=== PATIENT | male | born 1935 | race Caucasian/White ===

== ENCOUNTER 2016-09-03 11:02 | Inpatient (IN) | payer MEDICARE, BC ==
[2016-09-03] MEDS: Acetaminophen/HYDROcodone 325-5 MG Tab PO PRN ×3 (12:15→21:46)
--- NOTE | 2016-09-03 13:32 | PCM.HP ---
H&P History of Present Illness - General Date of Service: 09/03/16 Admit Problem/Dx: Admission Diagnosis/Problem Admission Diagnosis/Problem Arthroplasty of knee Severe Osteoarthritis of Left Knee Essential Hypertension Diabetes Mellitus, Type II Adenocarcinoma, Colon, Sigmoid, Hx of Source of Information: Patient, Old records, RN, RN notes reviewed History Limitations: Reports: No limitations - History of Present Illness Initial Comments - Free Text/Narative: Patient underwent a elective Total Left Knee Arthroplasty on 08/31/[address] Jj Zamora at [facility]. Patient has a long-standing history of severe left knee osteoarthritis which failed conservative treatment. Patient states his mobility was severely intolerable and had much trouble with ambulation. Patient had spinal anesthesia and EBL was 40mL. Surgery was uneventful and patient did well post-operatively. He remained hemodynamically stable and was able to be discharged to Swing Bed today. He does have a history of DM. His blood sugars have been running high in the 200's. Blood pressure has remained under decent control. Patient does not have a history of any blood clotting or bleeding disorders. Patient participated well with physical therapy and met goals for discharge. Symptom Onset Date: 08/31/16 left knee Pain Score (Numeric/FACES): 4 - Related Data Allergies/Adverse Reactions: Allergies Allergy/AdvReac Type Severity Reaction Status Date / Time No Known Drug Allergies Allergy Other Verified 09/03/16 07:32 Home Medications: Home Meds Aspirin/Calcium Carbonate/Mag [Aspirin Buffered 325 mg Tab] 325 mg PO BID [History] Folic Acid 1 mg PO DAILY 09/03/16 [History] Hydrochlorothiazide 12.5 mg PO DAILY 09/03/16 [History] Hydrocodone/Acetaminophen [Lowgap 5-325] 1 - 2 tab PO Q4H PRN 09/03/16 [History] Lisinopril 10 mg PO DAILY 09/03/16 [History] Methotrexate Sodium [Methotrexate] 15 mg PO Q7D 09/03/16 [History] Multivitamin [Daily Multiple Vitamin] 1 tab PO DAILY 09/03/16 [History] Omeprazole 40 mg PO DAILY 09/03/16 [History] Sennosides/Docusate Sodium [Senna-Docusate Sodium] 1 each PO DAILY 09/03/16 [ History] metFORMIN HCl [Metformin HCl] 1,000 mg PO BIDMEALS 09/03/16 [History] Past Medical History Cardiovascular History: Reports: Hypertension Respiratory History: Reports: None Gastrointestinal History: Reports: Colon polyp, Other (see below) ( Adenocarcinoma of Sigmoid Colon) Musculoskeletal History: Reports: Arthritis, Osteoarthritis, RA Endocrine/Metabolic History: Reports: Diabetes, type II Hematologic History: Reports: None Oncologic (Cancer) History: Reports: Colon - Infectious Disease History Infectious Disease History: Reports: None - Past Surgical History GI Surgical History: Reports: Colon Musculoskeletal Surgical History: Reports: Knee replacement Social & Family History - Family History Family Medical History: Noncontributory - Tobacco Use Smoking Status *Q: Former Smoker Tobacco Use Within Last Twelve Months: No Tobacco Use Comment: quit smoking 50 years ago Second Hand Smoke Exposure: No - Caffeine Use Caffeine Use: Reports: None - Alcohol Use Days Per Week of Alcohol Use: 1 Number of Drinks Per Day: 1 Total Drinks Per Week: 1 - Recreational Drug Use Recreational Drug Use: No - Living Situation & Occupation Occupation: retired H&P Review of Systems - Review of Systems: Review Of Systems: See Below General: Denies: fever, chills, weakness Pulmonary: Denies: Shortness of Breath, Cough Cardiovascular: Denies: chest pain, palpitations, lightheadedness Gastrointestinal: Reports: Constipation. Denies: Abdominal pain, Diarrhea, Nausea, Vomiting Genitourinary: Reports: no symptoms Musculoskeletal: Reports: joint pain, joint swelling, muscle stiffness Skin: Reports: no symptoms Neurological: Reports: No Symptoms. Denies: Dizziness, Headache, Numbness, Paresthesia, Tingling Exam - Exam Exam: See Below - Vital Signs Vital Signs: Last Vital Signs Temp 36.9 C 09/03/16 11:06 Pulse 79 09/03/16 11:06 Resp 20 09/03/16 11:06 BP 174/56 H 09/03/16 11:06 Pulse Ox 98 09/03/16 11:06 Weight: 92.624 kg - Exam General: alert, oriented Neck: supple Lungs: Normal respiratory effort, Crackles (Bibasilar). No: Rhonchi, Wheezing Cardiovascular: regular rate, regular rhythm, normal S1, normal S2 Abdomen: soft, hypoactive bowel sounds. No: organomegaly, distention Peripheral Pulses: 1+: posterior tibial (L), posterior tibial (R), dorsalis pedis (L), dorsalis pedis (R), 2+: radial (L), radial (R) Skin: warm, dry, incision (Skin intact with post-op glue; no drainage; left knee mildly swollen; temp normal; mild erythema; no evidence of infection) Neuro Extensive - Mental Status: alert, oriented x3 *Q Meaningful Use (ADM) - VTE *Q VTE Criteria *Q: - VTE Risk Assess *Q Each Risk Factor Represents 3 Points: Age 75 Years or Greater Total Score 3 Point Risk Factors: 3 Each Risk Factor Represents 5 Points: Elective Major Lower Extremity Arthroplasty Total Score 5 Point Risk Factors: 5 - Stroke *Q Stroke Criteria *Q: - AMI *Q AMI Criteria *Q: - Problem List (1) S/P total knee arthroplasty SNOMED Code(s): 0972123544142, 982485929, 3601684120438 ICD Code: Z96.659 - PRESENCE OF UNSPECIFIED ARTIFICIAL KNEE JOINT Status: Acute Current Visit: Yes Onset Date: ~08/31/16 Qualifiers: Laterality: left Qualified Code(s): Z96.652 - Presence of left artificial knee joint (2) DM2 (diabetes mellitus, type 2) SNOMED Code(s): 99159297 ICD Code: E11.9 - TYPE 2 DIABETES MELLITUS WITHOUT COMPLICATIONS Status: Chronic Current Visit: Yes Qualifiers: Diabetes mellitus complication status: without complication Diabetes mellitus exterminator helper insulin use: without exterminator helper use Qualified Code(s): E11.9 - Type 2 diabetes mellitus without complications (3) Hypertension SNOMED Code(s): 08501575 ICD Code: I10 - ESSENTIAL (PRIMARY) HYPERTENSION Status: Chronic Current Visit: Yes Qualifiers: Hypertension type: essential hypertension Qualified Code(s): I10 - Essential (primary) hypertension (4) Rheumatoid arthritis SNOMED Code(s): 11555280 ICD Code: M06.9 - RHEUMATOID ARTHRITIS, UNSPECIFIED Status: Chronic Current Visit: Yes Qualifiers: Rheumatoid arthritis location: multiple sites Rheumatoid factor presence: unspecified presence Qualified Code(s): M06.9 - Rheumatoid arthritis, unspecified (5) Osteoarthritis of left knee SNOMED Code(s): 072104189 ICD Code: M17.12 - UNILATERAL PRIMARY OSTEOARTHRITIS, LEFT KNEE Status: Chronic Current Visit: Yes Qualifiers: Osteoarthritis type: primary Qualified Code(s): M17.12 - Unilateral primary osteoarthritis, left knee (6) History of colon cancer SNOMED Code(s): 140084129 ICD Code: Z85.038 - PERSONAL HISTORY OF MALIGNANT NEOPLASM OF LARGE INTESTINE Status: Chronic Current Visit: Yes Problem List Initiated/Reviewed/Updated: Yes Orders Last 24hrs: Active Orders 24 hr Category Date Time Status Admission Status [Patient Status] [ADT] Routine ADT 09/03/16 07:37 Active OT Evaluation and Treatment [CONS] Routine Cons 09/03/16 12:49 Active PT Evaluation and Treatment [CONS] Routine Cons 09/03/16 12:49 Active Acetaminophen/HYDROcodone [Lowgap 325-5 MG] Med 09/03/16 11:51 Active 1 - 2 tab PO Q4H PRN Aspirin [Ecotrin] Med 09/03/16 18:00 Active 325 mg PO BIDMEALS Docusate Sodium/Sennosides [Senna Plus] Med 09/04/16 08:00 Active 1 tab PO DAILY Folic Acid Med 09/04/16 08:00 Active 1 mg PO DAILY Hydrochlorothiazide Med 09/04/16 08:00 Active 12.5 mg PO DAILY Lisinopril [Prinivil] Med 09/04/16 08:00 Active 10 mg PO DAILY Methotrexate Med 09/06/16 08:00 Active 15 mg PO Q7D Multivitamins w-Iron/Ca/FA/Min [Thera M Plus] Med 09/04/16 08:00 Active 1 tab PO DAILY Omeprazole Med 09/04/16 07:00 Active 40 mg PO DAILY@0700 metFORMIN [Glucophage] Med 09/03/16 18:00 Active 1,000 mg PO BIDMEALS Medication Orders Hydrocodone Bitart/Acetaminophen (Lowgap 325-5 Mg) 1 - 2 tab PO Q4H PRN PRN Reason: Pain Last Admin: 09/03/16 12:15 Dose: 2 tab Aspirin (Ecotrin) 325 mg PO BIDMEALS TONY Folic Acid (Folic Acid) 1 mg PO DAILY TONY Hydrochlorothiazide (Hydrochlorothiazide) 12.5 mg PO DAILY TONY Lisinopril (Prinivil) 10 mg PO DAILY TONY Metformin HCl (Glucophage) 1,000 mg PO BIDMEALS TONY Methotrexate (Methotrexate) 15 mg PO Q7D TONY Multivitamins/Minerals (Thera M Plus) 1 tab PO DAILY TONY Omeprazole (Omeprazole) 40 mg PO DAILY@0700 [facility] Senna/Docusate Sodium (Senna Plus) 1 tab PO DAILY [facility] Assessment/Plan Comment:: 80 yo white male, s/p Left Knee Arthroplasty, with a history of HTN, DM, and severe osteoarthritis, admitted to Swing bed at [facility] for continue rehab with physical and occupational therapy. Overall, patient is doing well. Is having minimal pain well controlled with current pain medication. Will continue with therapy for the next week. Plan is to discharge home in one week. Patient has a follow up appointment with surgeon on September 28, 2016. DM diet. Continue with home medications without any changes. Will check blood sugars per protocol. No labs medically necessary at this point. Monitor incision for any s/ sx of infection. Encourage C/DB with I.S. several times a day.
[2016-09-03] MEDS ORDERED: Docusate Sodium 100 MG Cap PO PRN (13:48)
[2016-09-03] MEDS ORDERED: Zolpidem 5 MG Tab PO PRN (13:48)
[2016-09-03] MEDS ORDERED: Polyethylene Glycol 3350 Powder 17 GM Packet PO PRN (13:48)
[2016-09-03] MEDS ORDERED: Ondansetron 4 MG Tab.DIS PO PRN (13:48)
[2016-09-03] MEDS ORDERED: Acetaminophen 325 MG Tab PO PRN (13:48)
[2016-09-03] MEDS ORDERED: Magnesium Hydroxide 400 MG/5 ML Susp 30 ML Cup PO PRN (13:48)
[2016-09-03] MEDS: Aspirin 325 MG Tab.EC PO SCH (17:39)
[2016-09-03] MEDS: metFORMIN 500 MG Tab PO SCH (17:39)
[2016-09-04] MEDS: Acetaminophen/HYDROcodone 325-5 MG Tab PO PRN ×5 (04:11→22:07)
[2016-09-04] MEDS: Omeprazole 20 MG Cap.CR PO SCH (06:26)
[2016-09-04] MEDS: Hydrochlorothiazide 12.5 MG Cap PO SCH (07:41)
[2016-09-04] MEDS: Lisinopril 10 MG Tab PO SCH (07:42)
[2016-09-04] MEDS: metFORMIN 500 MG Tab PO SCH ×2 (07:42→17:06)
[2016-09-04] MEDS: Aspirin 325 MG Tab.EC PO SCH ×2 (07:42→17:06)
[2016-09-04] MEDS: Folic Acid 1 MG Tab PO SCH (07:42)
[2016-09-04] MEDS: Multivitamins with Iron/Calcium/Folic Acid/Minerals Tab PO SCH (07:42)
[2016-09-04] MEDS ORDERED: Bisacodyl 5 MG Tab PO ONE (17:13)
[2016-09-04] MEDS ORDERED: Bisacodyl 10 MG Supp RECTAL ONE (17:41)
[2016-09-05] MEDS: Acetaminophen/HYDROcodone 325-5 MG Tab PO PRN ×5 (04:27→21:19)
[2016-09-05] MEDS: Omeprazole 20 MG Cap.CR PO SCH (06:32)
[2016-09-05] MEDS: Aspirin 325 MG Tab.EC PO SCH ×2 (07:57→17:20)
[2016-09-05] MEDS: metFORMIN 500 MG Tab PO SCH ×2 (07:58→17:20)
[2016-09-05] MEDS: Multivitamins with Iron/Calcium/Folic Acid/Minerals Tab PO SCH (07:58)
[2016-09-05] MEDS: Lisinopril 10 MG Tab PO SCH (07:58)
[2016-09-05] MEDS: Hydrochlorothiazide 12.5 MG Cap PO SCH (07:58)
[2016-09-05] MEDS: Folic Acid 1 MG Tab PO SCH (07:58)
[2016-09-06] MEDS: Acetaminophen/HYDROcodone 325-5 MG Tab PO PRN ×5 (02:25→19:26)
[2016-09-06] MEDS: Omeprazole 20 MG Cap.CR PO SCH (06:23)
[2016-09-06] MEDS: Multivitamins with Iron/Calcium/Folic Acid/Minerals Tab PO SCH (07:32)
[2016-09-06] MEDS: Aspirin 325 MG Tab.EC PO SCH ×2 (07:32→17:24)
[2016-09-06] MEDS: Hydrochlorothiazide 12.5 MG Cap PO SCH (07:32)
[2016-09-06] MEDS: Lisinopril 10 MG Tab PO SCH (07:32)
[2016-09-06] MEDS: Folic Acid 1 MG Tab PO SCH (07:33)
[2016-09-06] MEDS: metFORMIN 500 MG Tab PO SCH ×2 (07:33→17:25)
[2016-09-06] MEDS ORDERED: Methotrexate 2.5 MG Tab PO SCH (08:00)
[2016-09-07] MEDS: Acetaminophen/HYDROcodone 325-5 MG Tab PO PRN ×6 (00:18→20:32)
[2016-09-07] MEDS: Omeprazole 20 MG Cap.CR PO SCH (06:14)
[2016-09-07] MEDS: Aspirin 325 MG Tab.EC PO SCH ×2 (07:28→17:17)
[2016-09-07] MEDS: Hydrochlorothiazide 12.5 MG Cap PO SCH (07:28)
[2016-09-07] MEDS: metFORMIN 500 MG Tab PO SCH ×2 (07:28→17:17)
[2016-09-07] MEDS: Lisinopril 10 MG Tab PO SCH (07:28)
[2016-09-07] MEDS: Folic Acid 1 MG Tab PO SCH (07:28)
[2016-09-07] MEDS: Multivitamins with Iron/Calcium/Folic Acid/Minerals Tab PO SCH (07:28)
[2016-09-08] MEDS: Acetaminophen/HYDROcodone 325-5 MG Tab PO PRN ×6 (00:36→22:16)
[2016-09-08] MEDS: Omeprazole 20 MG Cap.CR PO SCH (06:28)
[2016-09-08] MEDS: Lisinopril 10 MG Tab PO SCH (07:38)
[2016-09-08] MEDS: metFORMIN 500 MG Tab PO SCH ×2 (07:38→17:23)
[2016-09-08] MEDS: Multivitamins with Iron/Calcium/Folic Acid/Minerals Tab PO SCH (07:39)
[2016-09-08] MEDS: Aspirin 325 MG Tab.EC PO SCH ×2 (07:39→17:22)
[2016-09-08] MEDS: Folic Acid 1 MG Tab PO SCH (07:39)
[2016-09-08] MEDS: Hydrochlorothiazide 12.5 MG Cap PO SCH (07:39)
[2016-09-09] MEDS: Omeprazole 20 MG Cap.CR PO SCH (06:26)
[2016-09-09] MEDS: metFORMIN 500 MG Tab PO SCH ×2 (07:47→17:23)
[2016-09-09] MEDS: Hydrochlorothiazide 12.5 MG Cap PO SCH (07:48)
[2016-09-09] MEDS: Lisinopril 10 MG Tab PO SCH (07:48)
[2016-09-09] MEDS: Folic Acid 1 MG Tab PO SCH (07:49)
[2016-09-09] MEDS: Aspirin 325 MG Tab.EC PO SCH ×2 (07:49→17:23)
[2016-09-09] MEDS: Acetaminophen/HYDROcodone 325-5 MG Tab PO PRN ×3 (07:50→20:02)
[2016-09-09] MEDS: Multivitamins with Iron/Calcium/Folic Acid/Minerals Tab PO SCH (07:50)
[2016-09-10] MEDS: Acetaminophen/HYDROcodone 325-5 MG Tab PO PRN ×2 (04:15→07:58)
[2016-09-10] MEDS: Omeprazole 20 MG Cap.CR PO SCH (06:27)
[2016-09-10] MEDS: metFORMIN 500 MG Tab PO SCH (07:56)
[2016-09-10] MEDS: Multivitamins with Iron/Calcium/Folic Acid/Minerals Tab PO SCH (07:56)
[2016-09-10] MEDS: Hydrochlorothiazide 12.5 MG Cap PO SCH (07:57)
[2016-09-10] MEDS: Lisinopril 10 MG Tab PO SCH (07:57)
[2016-09-10] MEDS: Aspirin 325 MG Tab.EC PO SCH (07:57)
[2016-09-10] MEDS: Folic Acid 1 MG Tab PO SCH (07:57)
[2016-09-10 07:59] VITALS: BP 134/77
--- NOTE | 2016-09-24 22:31 | PCM.DCSUM1 ---
Discharge Summary - Hospital Course Free Text/Narrative:: 80 year old male admitted to swing bed for continued therapy following a left knee arthroplasty. - Discharge Data Discharge Date: 09/10/16 Discharge Disposition: Home, Self-Care 01 Condition: Good - Discharge Diagnosis/Problem(s) (1) S/P total knee arthroplasty SNOMED Code(s): 8316031890138, 922317659, 0093455242815 ICD Code: Z96.659 - PRESENCE OF UNSPECIFIED ARTIFICIAL KNEE JOINT Status: Acute Onset Date: ~08/31/16 Qualifiers: Laterality: left Qualified Code(s): Z96.652 - Presence of left artificial knee joint (2) DM2 (diabetes mellitus, type 2) SNOMED Code(s): 33849619 ICD Code: E11.9 - TYPE 2 DIABETES MELLITUS WITHOUT COMPLICATIONS Status: Chronic Qualifiers: Diabetes mellitus complication status: without complication Diabetes mellitus assisted insulin use: without moth exterminator use Qualified Code(s): E11.9 - Type 2 diabetes mellitus without complications (3) Hypertension SNOMED Code(s): 42657720 ICD Code: I10 - ESSENTIAL (PRIMARY) HYPERTENSION Status: Chronic Qualifiers: Hypertension type: essential hypertension Qualified Code(s): I10 - Essential (primary) hypertension (4) Osteoarthritis of left knee SNOMED Code(s): 237326678 ICD Code: M17.12 - UNILATERAL PRIMARY OSTEOARTHRITIS, LEFT KNEE Status: Chronic Qualifiers: Osteoarthritis type: primary Qualified Code(s): M17.12 - Unilateral primary osteoarthritis, left knee - Patient Summary/Data Consults: Consultations 09/03/16 12:49 OT Evaluation and Treatment [CONS] Routine PT Evaluation and Treatment [CONS] Routine Hospital Course: 80 year old male admitted to swing bed for continued therapy following left knee arthroplasty. Swing bed course was unremarkable. Pt progressed in physical therapy as anticipated. Pain was adequately controlled. Blood sugars and vital signs remained stable throughout stay. At time of discharge, pt is tolerating a regular diet. He is voiding and stooling without difficulty. He is able to ambulate independently with the assistance of a walker. Discharge medications per reconciliation. Pt to follow up with PCP 2 weeks after discharge. - Patient Instructions Driving: Do Not Drive Notify Provider of: Fever, Increased Pain, Swelling and Redness - Discharge Plan Home Medications: Home Meds Aspirin/Calcium Carbonate/Mag [Aspirin Buffered 325 mg Tab] 325 mg PO BID [History] Folic Acid 1 mg PO DAILY 09/03/16 [History] Hydrochlorothiazide 12.5 mg PO DAILY 09/03/16 [History] Hydrocodone/Acetaminophen [[place] 5-325] 1 - 2 tab PO Q4H PRN 09/03/16 [History] Lisinopril 10 mg PO DAILY 09/03/16 [History] Methotrexate Sodium [Methotrexate] 15 mg PO Q7D 09/03/16 [History] Multivitamin [Daily Multiple Vitamin] 1 tab PO DAILY 09/03/16 [History] Omeprazole 40 mg PO DAILY 09/03/16 [History] Sennosides/Docusate Sodium [Senna-Docusate Sodium] 1 each PO DAILY 09/03/16 [ History] metFORMIN HCl [Metformin HCl] 1,000 mg PO BIDMEALS 09/03/16 [History] - Discharge Summary/Plan Comment DC Time >30 min.: No Discharge Summary/Plan Comment: At time of discharge, pt is tolerating a regular diet. He is voiding and stooling without difficulty. He is able to ambulate independently with the assistance of a walker. Discharge medications per reconciliation. Pt to follow up with PCP 2 weeks after discharge. - Patient Data Vitals - Most Recent: Last Vital Signs Temp 36.7 C 09/10/16 05:55 Pulse 72 09/10/16 05:55 Resp 20 09/10/16 05:55 BP 134/77 09/10/16 07:57 Pulse Ox 96 09/10/16 05:55 Weight - Most Recent: 92.624 kg Med Orders - Current: Current Medications Discontinued Medications Acetaminophen (Tylenol) 650 mg PO Q4H PRN PRN Reason: Pain (Mild 1-3)/fever Last Admin: 09/09/16 03:27 Dose: 650 mg Hydrocodone Bitart/Acetaminophen ([place] 325-5 Mg) 1 - 2 tab PO Q4H PRN PRN Reason: Pain Last Admin: 09/10/16 07:58 Dose: 1 tab Aspirin (Ecotrin) 325 mg PO BIDMEALS TONY Last Admin: 09/10/16 07:57 Dose: 325 mg Bisacodyl (Dulcolax) 10 mg RECTAL ONETIME ONE Stop: 09/04/16 17:42 Last Admin: 09/04/16 18:02 Dose: 10 mg Docusate Sodium (Colace) 100 mg PO BID PRN PRN Reason: Constipation Folic Acid (Folic Acid) 1 mg PO DAILY [facility] Last Admin: 09/10/16 07:57 Dose: 1 mg Hydrochlorothiazide (Hydrochlorothiazide) 12.5 mg PO DAILY [facility] Last Admin: 09/10/16 07:57 Dose: 12.5 mg Lisinopril (Prinivil) 10 mg PO DAILY [facility] Last Admin: 09/10/16 07:57 Dose: 10 mg Magnesium Hydroxide (Milk Of Magnesia) 30 ml PO Q12H PRN PRN Reason: Constipation Last Admin: 09/03/16 20:08 Dose: 30 ml Metformin HCl (Glucophage) 1,000 mg PO BIDMEALS [facility] Last Admin: 09/10/16 07:56 Dose: 1,000 mg Methotrexate (Methotrexate) 15 mg PO Q7D [facility] Last Admin: 09/06/16 07:37 Dose: 15 mg Multivitamins/Minerals (Thera M Plus) 1 tab PO DAILY [facility] Last Admin: 09/10/16 07:56 Dose: 1 tab Omeprazole (Omeprazole) 40 mg PO DAILY@0700 [facility] Last Admin: 09/10/16 06:27 Dose: 40 mg Ondansetron HCl (Zofran Odt) 4 mg PO Q6H PRN PRN Reason: nausea, able to take PO Polyethylene Glycol (Miralax) 17 gm PO DAILY PRN PRN Reason: Constipation Last Admin: 09/04/16 07:43 Dose: 17 gm Senna/Docusate Sodium (Senna Plus) 1 tab PO DAILY [facility] Last Admin: 09/10/16 07:55 Dose: 1 tab Zolpidem Tartrate (Ambien) 5 mg PO BEDTIME PRN PRN Reason: Sleep Last Admin: 09/09/16 20:04 Dose: 5 mg *Q Meaningful Use (DIS) - VTE *Q VTE Criteria *Q: - Stroke *Q Stroke Criteria *Q: - AMI *Q AMI Criteria *Q:
== END 2016-09-10 13:20 | disposition home or self-care (01) | DRG 561 ==
LOC: VM.MS 11:02
PROVIDERS: ADMIT Nurse Practitioner Family; ATTEND Family Medicine
DX: Z47.1 Aftercare following joint replacement surgery (principal); Z96.652 Presence of left artificial knee joint; Z79.82 Long term (current) use of aspirin; Z79.899 Other long term (current) drug therapy; E11.9 Type 2 diabetes mellitus without complications; Z79.84 Long term (current) use of oral hypoglycemic drugs; I10 Essential (primary) hypertension; M06.9 Rheumatoid arthritis, unspecified; M19.90 Unspecified osteoarthritis, unspecified site; Z87.891 Personal history of nicotine dependence; Z85.038 Personal history of other malignant neoplasm of large intestine
CPT/HCPCS: 82962; 97110-GP; 97116-GP; 97161-GP; 97165-GO; 97535-GO; A9270-GY; J8610

== ENCOUNTER 2021-01-14 18:33 | Emergency (ER) | payer MEDICARE, BC ==
[2021-01-14] MEDS ORDERED: Acetaminophen/HYDROcodone 325-5 MG Tab PO ONE (19:05)
--- NOTE | 2021-01-14 19:14 | EDM.PDOC ---
ED HPI GENERAL MEDICAL PROBLEM - General Stated Complaint: Fall / Left Knee Pain Time Seen by Provider: 01/14/21 19:00 Source of Information: Reports: Patient History Limitations: Reports: No Limitations - History of Present Illness INITIAL COMMENTS - FREE TEXT/NARRATIVE: Patient tripped and fell at home on the carpet. He landed on the left knee at the infrapatellar area. He managed to get himself up off the carpet. He could ambulate at first, but then as the day progress it is more and more sore. He is struggling to weight bear on it now. abrasion on the inferior knee. No other injuries, unsure of his tetanus, no on any blood thinners Onset: Today Duration: Hour(s): Location: Reports: Lower Extremity, Left Quality: Reports: Stabbing Severity: Moderate Improves with: Reports: Medication Worsens with: Reports: Movement Associated Symptoms: Reports: No Other Symptoms Treatments CLEAN RICE GRADER AND REEL TENDER: Reports: NSAIDS Left Knee Pain Score (Numeric/FACES): 8 - Related Data Allergies Allergy/AdvReac Type Severity Reaction Status Date / Time No Known Drug Allergies Allergy Other Verified 09/03/16 07:32 Home Meds: Home Meds Aspirin/Calcium Carbonate/Mag [Aspirin Buffered 325 mg Tab] 325 mg PO BID 09/03/16 [History] Folic Acid 1 mg PO DAILY 09/03/16 [History] Hydrochlorothiazide 12.5 mg PO DAILY 09/03/16 [History] Hydrocodone/Acetaminophen [[place] 5-325] 1 - 2 tab PO Q4H PRN 09/03/16 [History] Lisinopril 10 mg PO DAILY 09/03/16 [History] Multivitamin [Daily Multiple Vitamin] 1 tab PO DAILY 09/03/16 [History] Omeprazole 40 mg PO DAILY 09/03/16 [History] Sennosides/Docusate Sodium [Senna-Docusate Sodium] 1 each PO DAILY 09/03/16 [History] metFORMIN HCl [Metformin HCl] 1,000 mg PO BIDMEALS 09/03/16 [History] metHOTREXate sodium [Methotrexate] 15 mg PO Q7D 09/03/16 [History] Hydrocodone/Acetaminophen [HYDROcodone-Acetaminophen 5-325 MG] 1 each PO Q6HR PRN #15 tab 01/14/21 [Rx] Past Medical History Cardiovascular History: Reports: Hypertension Respiratory History: Reports: None Gastrointestinal History: Reports: Colon Polyp, Other (See Below) Musculoskeletal History: Reports: Arthritis, Osteoarthritis, RA Endocrine/Metabolic History: Reports: Diabetes, Type II Hematologic History: Reports: None Oncologic (Cancer) History: Reports: Colon - Infectious Disease History Infectious Disease History: Reports: None - Past Surgical History Musculoskeletal Surgical History: Reports: Knee Replacement Social & Family History - Family History Family Medical History: No Pertinent Family History - Caffeine Use Caffeine Use: Reports: None - Living Situation & Occupation Occupation: Retired Review of Systems - Review of Systems Review Of Systems: Comprehensive ROS is negative, except as noted in HPI. Constitutional: Reports: No Symptoms Eyes: Reports: No Symptoms Ears: Reports: No Symptoms Nose: Reports: No Symptoms Mouth/Throat: Reports: No Symptoms Respiratory: Reports: No Symptoms Cardiovascular: Reports: No Symptoms GI/Abdominal: Reports: No Symptoms Genitourinary: Reports: No Symptoms Musculoskeletal: Reports: Joint Pain (left knee) Skin: Reports: Wound (left infrapatellar knee) ED EXAM, GENERAL - Physical Exam Exam: See Below Exam Limited By: No Limitations General Appearance: Alert, WD/WN, No Apparent Distress Ears: Normal External Exam Nose: Normal Mucosa Throat/Mouth: Normal Inspection, Normal Lips, Normal Voice Head: Atraumatic Respiratory/Chest: No Respiratory Distress, Lungs Clear, Normal Breath Sounds Cardiovascular: Normal Peripheral Pulses, Regular Rate, Rhythm, No Edema Extremities: Joint Swelling (left knee, moderate. abarsion at the infrapatellar area. held in flexion of 90 degrees. limited extension due to pain. limited to knee joint. NO pain to palpation of the mid lower leg, ankle. ) Course - Vital Signs Last Recorded V/S: Last Vital Signs Temp 36.6 C 01/14/21 19:10 Pulse 94 01/14/21 19:10 Resp 12 01/14/21 19:10 BP 145/67 H 01/14/21 19:10 Pulse Ox 94 L 01/14/21 19:10 - Orders/Labs/Meds Orders: Active Orders 24 hr Category Date Time Status Vaccines to be Administered [RC] PER UNIT ROUTINE Care 01/14/21 20:19 Ordered Knee 3V Lt [CR] Stat Exams 01/14/21 19:05 Taken Diphth,Pertuss(Acell),Tet Vac [Boostrix] Med 01/14/21 20:19 Once 0.5 ml IM .ONCE ONE Meds: Medications Discontinued Medications Generic Name Dose Route Start Last Admin Trade Name Dillan PRN Reason Stop Dose Admin Hydrocodone Bitart/Acetaminophen 1 tab 01/14/21 19:05 01/14/21 19:15 Acetaminophen/Hydrocodone 325-5 Mg Tab PO 01/14/21 19:06 1 tab ONETIME ONE Administration Hydrocodone Bitart/Acetaminophen 1 packet 01/14/21 20:06 Take Home: Acetaminophen/Hydrocodone 325-5 Mg, 5 Tab Pack PO 01/14/21 20:07 ONETIME ONE - Radiology Interpretation Free Text/Narrative:: left knee without any acute fracture or dislocation interpreted by radiology - Re-Assessments/Exams Free Text/Narrative Re-Assessment/Exam: 01/14/21 19:17 will give a hydrocodone 5/325 and check a x-ray./ tetanus was unable to be found, boostrix ordered 01/14/21 20:10 will racquel wrap, friend has a walker at home. dress the wound, watch for signs of infection. send home small script of pain medication, one to fill in the morni ng. follow up with orthopedics. 01/14/21 20:20 Departure - Departure Time of Disposition: 20:15 Disposition: Home, Self-Care 01 Clinical Impression: Knee injury, Abrasion - Discharge Information *PRESCRIPTION DRUG MONITORING PROGRAM REVIEWED*: Not Applicable *COPY OF PRESCRIPTION DRUG MONITORING REPORT IN PATIENT LACIE: Not Applicable Prescriptions: Hydrocodone/Acetaminophen [HYDROcodone-Acetaminophen 5-325 MG] 1 each PO Q6HR PRN #15 tab PRN Reason: Pain (Moderate 4-6) Instructions: Elastic Bandage and RICE Therapy Referrals: Jamzin Anne DO [Primary Care Provider] - Additional Instructions: x-ray today does not reveal any fracture and the total knee replacement appears to be intact. Use the walker until you can walk without a limp. You were given pain medication in the ED and a prescription to fill tomorrow. Take one tablet every 6 hours as needed. Use antibiotic ointment on the abrasions and ice the knee. Follow up with orthopedics for further problems. Sepsis Event Note (ED) - Focused Exam Vital Signs: Vital Signs Temp Pulse Resp BP Pulse Ox 01/14/21 19:10 36.6 C 94 12 145/67 H 94 L - My Orders Last 24 Hours: My Active Orders 01/14/21 19:05 Knee 3V Lt [CR] Stat 01/14/21 20:19 Vaccines to be Administered [RC] PER UNIT ROUTINE Diphth,Pertuss(Acell),Tet Vac [Boostrix] 0.5 ml IM .ONCE ONE - Assessment/Plan Last 24 Hours: My Active Orders 01/14/21 19:05 Knee 3V Lt [CR] Stat 01/14/21 20:19 Vaccines to be Administered [RC] PER UNIT ROUTINE Diphth,Pertuss(Acell),Tet Vac [Boostrix] 0.5 ml IM .ONCE ONE
[2021-01-14 19:38] VITALS: BP 145/67; PULSE 94
[2021-01-14] MEDS ORDERED: Take Home: Acetaminophen/HYDROcodone 325-5 MG, 5 Tab Pack PO ONE (20:06)
[2021-01-14] MEDS ORDERED: Diphtheria,Pertussis(Acell),Tetanus Vaccine 0.5 ML Syringe IM ONE (20:19)
--- NOTE | 2021-01-15 08:09 | CR ---
[id number] RAD/RAD Knee Left 3V EXAM: RAD Knee Left 3V CLINICAL DATA: TRAUMA COMPARISON: No previous similar exam is available. FINDINGS: No fracture or dislocation is seen The prosthesis appears intact There are vascular calcifications IMPRESSION: NEGATIVE PLAIN FILM EXAM. Colton Anderson MD 01/15/21 0808 Thank you for allowing us to participate in the care of your patient.
== END 2021-01-14 20:49 | disposition home or self-care (01) ==
LOC: VM.ED 18:33
DX: S80.212A Abrasion, left knee, initial encounter (principal); M06.9 Rheumatoid arthritis, unspecified; I10 Essential (primary) hypertension; E11.9 Type 2 diabetes mellitus without complications; Z79.82 Long term (current) use of aspirin; Z79.899 Other long term (current) drug therapy; Z96.659 Presence of unspecified artificial knee joint; Z23 Encounter for immunization; W01.0XXA Fall on same level from slipping, tripping and stumbling without subsequent striking against object, initial encounter; Y92.009 Unspecified place in unspecified non-institutional (private) residence as the place of occurrence of the external cause
CPT/HCPCS: 73562-LT; 90471; 90715; 99283; 99283-25; A9270-GY

== ENCOUNTER 2022-01-18 08:52 | Day surgery (SDC) | payer MEDICARE, BC ==
[~2022-01-18 08:52] MED LIST: Lactated Ringers 1,000 ML IV SCH
[2022-01-18] MEDS ORDERED: fentaNYL 100 MCG/2 ML SDV ONE (09:57)
[2022-01-18] MEDS ORDERED: Propofol 200 MG/20 ML SDV ONE (09:57)
[2022-01-18 10:57] VITALS: BP 165/65; PULSE 57
== END 2022-01-18 11:26 | disposition home or self-care (01) ==
LOC: VM.SDS 08:52
PROVIDERS: ATTEND Surgery
DX: C18.9 Malignant neoplasm of colon, unspecified (principal); K57.30 Diverticulosis of large intestine without perforation or abscess without bleeding; I10 Essential (primary) hypertension; E11.9 Type 2 diabetes mellitus without complications; M06.9 Rheumatoid arthritis, unspecified; M11.20 Other chondrocalcinosis, unspecified site; Z79.899 Other long term (current) drug therapy; Z86.010 Personal history of colon polyps; Z79.84 Long term (current) use of oral hypoglycemic drugs; Z87.891 Personal history of nicotine dependence
CPT/HCPCS: 00812; 45378; 82947; J2704; J3010; J7120

== ENCOUNTER 2022-04-06 18:59 | Emergency (ER) | payer MEDICARE, BC ==
[2022-04-06 19:40] VITALS: PULSE 71
[2022-04-06 19:57] LABS: CHLORIDE,CL 102 mmol/L (98-107); SODIUM,NA 137 mmol/L (136-145)
[2022-04-06 19:58] LABS: ANION GAP 17.1 mmol/L (5-15); ESTIMATED GFR 66 mL/min (>=60)
[2022-04-06 21:19] VITALS: BP 171/71
== END 2022-04-06 21:38 | disposition home or self-care (01) ==
LOC: VM.ED 18:59
DX: S01.21XA Laceration without foreign body of nose, initial encounter (principal); S80.02XA Contusion of left knee, initial encounter; S00.81XA Abrasion of other part of head, initial encounter; I10 Essential (primary) hypertension; M06.9 Rheumatoid arthritis, unspecified; E11.9 Type 2 diabetes mellitus without complications; Z79.84 Long term (current) use of oral hypoglycemic drugs; Z79.899 Other long term (current) drug therapy; W01.0XXA Fall on same level from slipping, tripping and stumbling without subsequent striking against object, initial encounter
CPT/HCPCS: 12011; 36415; 73562-LT; 80053; 84484; 85025; 93005; 99283; 99284